=== PATIENT | male | born 2000 | race Caucasian/White ===

== ENCOUNTER 2019-06-04 10:35 | Emergency (ER) | payer MEDICARE, MEDICAID ==
[2019-06-04] MEDS ORDERED: hydrOXYzine HCL TAB* 50 MG PO ONE (10:57)
--- NOTE | 2019-06-04 11:10 | ED ---
Psychiatric Complaint - HPI Summary HPI Summary: Pt is a 18 y/o M presenting to the ED for a psychiatric complaint. Pts mother is present and speaking for the pt. Pts mother states that on 05/31/19, pt was attempting to hurt his dog and was not behaving at baseline. Pts mother states that pt previously took lithium and Seroquel for approximately 6 months which was prescribed by his psychiatrist, but stopped taking these medications for the last 2 days and pts behavior has improved. Pts mother denies pt had a fever. Pt takes Gabapentin for a PMHx of anxiety, and previously took Prozac. Pt also has a PMHx of autism spectrum disorder. Pt has a FMHx of autism spectrum disorder in pts mother, cardiac disease, and anxiety. Pts mother denies FMHx of HTN or DM. - History Of Current Complaint Chief Complaint: EDPsychosocial Time Seen by Provider: 06/04/19 10:39 Hx Obtained From: Family/Forensics Analyst - Mother Hx From Patient Unobtainable Due To: Other - Autism spectrum Onset/Duration: Lasting Days, Still Present Timing: Days Severity Initially: Moderate Severity Currently: Moderate Character: Anxious Aggravating Factor(s): Other - [place] and Seroquel Alleviating Factor(s): Nothing Associated Signs And Symptoms: Positive: Negative Related History: Positive For: Prior Psychiatric Issues - Allergies/Home Medications Allergies/Adverse Reactions: Allergies Allergy/AdvReac Type Severity Reaction Status Date / Time No Known Allergies Allergy Verified 06/04/19 10:46 Home Medications: Home Medications Gabapentin 300 mg PO TID 06/04/19 [History Confirmed 06/04/19] Naproxen Sod/Diphenhydramine [Aleve PM 220-25 mg] 3 tab PO BEDTIME 06/04/19 [ History Confirmed 06/04/19] PMH/Surg Hx/FS Hx/Imm Hx Previously Healthy: Yes Endocrine/Hematology History: Denies: Hx Diabetes Cardiovascular History: Denies: Hx Hypertension Psychiatric History: Reports: Hx Anxiety, Hx Autism - Surgical History Surgical History: None Surgery Procedure, Year, and Place: None Infectious Disease History: No Infectious Disease History: Denies: Traveled Outside the [place] in Last 30 Days - Family History Known Family History: Positive: Cardiac Disease Negative: Hypertension, Diabetes - Social History Lives: With Family Alcohol Use: None Hx Substance Use: No Substance Use Type: Reports: None Smoking Status (MU): Never Smoked Tobacco Review of Systems Negative: Fever Positive: Anxious, Other - Autism spectrum; behavior not at baseline All Other Systems Reviewed And Are Negative: Yes Physical Exam - Summary Physical Exam Summary: Constitutional: Well-developed, Well-nourished, Alert. (-) Distressed Skin: Warm, Dry HENT: Normocephalic; Atraumatic Eyes: Conjunctiva normal Neck: Musculoskeletal ROM normal neck. (-) JVD, (-) Stridor, (-) Nuchal rigidity Cardio: Rhythm regular, rate normal, Heart sounds normal; Intact distal pulses; Radial pulses are 2+ and symmetric. (-) Murmur Pulmonary/Chest wall: Effort normal. (-) Respiratory distress, (-) Wheezes, (-) Rales Abd: Soft, (-) tenderness, (-) Distension, (-) Guarding, (-) Rebound Musculoskeletal: (-) Edema Lymph: (-) Cervical adenopathy Neuro: Alert, Oriented x3. Answers yes/no at neurologic baseline. Psych: Mood and affect Normal Triage Information Reviewed: Yes Vital Signs On Initial Exam: Initial Vitals Temp Pulse Resp BP Pulse Ox 98.5 F 90 16 128/87 97 06/04/19 10:41 06/04/19 10:41 06/04/19 10:41 06/04/19 10:41 06/04/19 10:41 Vital Signs Reviewed: Yes Procedures - Sedation Patient Received Moderate/Deep Sedation with Procedure: No Diagnostics - Vital Signs Vital Signs Temp Pulse Resp BP Pulse Ox 06/04/19 10:41 98.5 F 90 16 128/87 97 - Laboratory Lab Statement: Any lab studies that have been ordered have been reviewed, and results considered in the medical decision making process. Course/Dx - Course Course Of Treatment: 18 y/o male w hx of Autism p/w anxiety concern for need for medication change. - have MHU eval, hydroxyzine for anxiety - Differential Dx/Clinical Impression Provider Diagnosis: Anxiety, Autism spectrum disorder - Physician Notifications Discussed Care Of Patient With: Valeriy Loza - discharge w hydroxyzine Time Discussed With Above Provider: 13:02 Discharge ED - Sign-Out/Discharge Documenting (check all that apply): Patient Departure - Discharge - Discharge Plan Condition: Stable Disposition: HOME Prescriptions: hydrOXYzine HCL TAB* [Atarax TAB 50 MG *] 50 mg PO TID PRN 14 Days #42 tab PRN Reason: Anxiety Patient Education Materials: Autism Spectrum Disorder (DC) Referrals: Antoine Mckeon MD [Primary Care Provider] - - Billing Disposition and Condition Condition: STABLE Disposition: Home - Attestation Statements Document Initiated by Scribe: Yes Documenting Scribe: Petra Fink Provider For Whom Scribe is Documenting (Include Credential): Evelin Silveira MD Scribe Attestation: Petra Mora, scribed for Evelin Silveira MD on 06/04/19 at 1333. Scribe Documentation Reviewed: Yes Provider Attestation: The documentation as recorded by the Petra wong accurately reflects the service I personally performed and the decisions made by Evelin conde MD Status of Scribe Document: Viewed Consult Consult: At 10:56, risk reduction counselor will assess the pt. At 13:02, risk reduction counselor reports that pts case was reviewed by Dr. Loza. Pt will be discharged home with a diagnosis of autism spectrum disorder and will be given Hydroxyzine 50 mg PO for 2 weeks.
[2019-06-04 13:35] VITALS: BP 125/78
== END 2019-06-04 13:16 | disposition home or self-care (01) ==
LOC: ED 10:35
DX: F41.9 Anxiety disorder, unspecified (principal); F84.0 Autistic disorder; Z79.899 Other long term (current) drug therapy
CPT/HCPCS: 99283; A9270-GY

== ENCOUNTER 2019-06-07 18:13 | Emergency (ER) | payer MEDICARE, MEDICAID ==
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
[2019-06-07 19:24] LABS: ABS Eosinophils 0.1 10^3/ul (0-0.6); ABS Lymphocytes 3.3 10^3/ul (1.0-4.8); ABS Monocytes 0.6 10^3/ul (0-0.8); ABS Neutrophils 3.4 10^3/ul (1.5-7.7); Eosinophil % 1.5 %; Hematocrit 44 % (42-52); Lymphocyte % 43.9 %; Mean Corpuscular HGB Conc 34 g/dL (31-36); Mean Corpuscular Hemoglobin 29 pg (27-31); Mean Corpuscular Volume 86 fL (80-94); Mean Platelet Volume 7.6 fL (7.4-10.4); Nucleated Red Blood Cells % 0.1; Platelet Count 305 10^3/uL (150-450); Red Blood Count 5.11 10^6 /uL (4.18-5.48); Red Cell Distribution Width 13 % (10-15); White Blood Count 7.5 10^3/uL (3.5-10.8)
[2019-06-07 19:45] LABS: ALT 11 U/L (7-52); AST 14 U/L (13-39); Albumin 4.4 g/dL (3.2-5.2); Albumin/Globulin Ratio 1.6 (1-3); Alkaline Phosphatase 77 U/L (34-104); Anion Gap 7 mmol/L (2-11); BUN/Creatinine Ratio 19.2 (8-20); Blood Urea Nitrogen 20 mg/dL (6-24); C Reactive Protein 1.31 mg/L (<8.01); CO2 Carbon Dioxide 25 mmol/L (22-32); Calcium 9.6 mg/dL (8.6-10.3); Chloride 107 mmol/L (101-111); EGFR African American 110.2 (>60); Globulin 2.8 g/dL (2-4); Glucose 102 mg/dL (70-100); Potassium 3.8 mmol/L (3.5-5.0); Sodium 139 mmol/L (135-145); Total Protein 7.2 g/dL (6.4-8.9)
[2019-06-07 20:10] LABS: Acetaminophen < 15 mcg/mL; Alcohol < 10 mg/dL (<10); Salicylate < 2.50 mg/dL (<30)
[2019-06-07 20:25] LABS: TSH (Thyroid Stimulating Horm) 3.14 mcIU/mL (0.34-5.60)
[2019-06-07 21:16] LABS: Lithium < 0.10 mmol/L (0.6-1.2)
[2019-06-07] MEDS ORDERED: hydrOXYzine HCL TAB* 50 MG PO ONE (22:48)
--- NOTE | 2019-06-08 05:04 | ED ---
Progress - Progress Note Progress Note: Pt is a sign out from [facility] Sh[facility]azz at 0230 06/08/2019 pending MHU hold and disposition. The pt will be a sign-out to Dr. Fitzgerald at the [address]06/08/2019 shift change pending MHU hold and disposition. - Consult/PCP Time Called: 19:54 Course/Dx - Course Course Of Treatment: Pt is a sign out from [facility] at 0230 06/08/2019 pending MHU hold and disposition. The pt will be a sign-out to Dr. Fitzgerald at the 699 shift change pending MHU hold and disposition. - Diagnoses Provider Diagnoses: Autism, Aggressive behavior Discharge ED - Sign-Out/Discharge Documenting (check all that apply): Sign-Out Patient, Receiving Sign-Out Signing out patient TO: Thomas Fitzgerald Receiving patient FROM: Thomas Shabazz - Discharge Plan Referrals: Antoine Mckeon MD [Primary Care Provider] - - Attestation Statements Document Initiated by Scribe: Yes Documenting Scribe: Patricio Segovia Provider For Whom Stellaibe is Documenting (Include Credential): Felicia Evans MD Scribe Attestation: IPatricio, scribed for Felicia Evans MD on 06/08/19 at 0549. Scribe Documentation Reviewed: Yes Provider Attestation: The documentation as recorded by the stellaibPatricio sauer accurately reflects the service I personally performed and the decisions made by me, Felicia Evans MD Status of Scribe Document: Viewed
--- NOTE | 2019-06-08 07:19 | ED ---
Progress - Progress Note Progress Note: The pt is a sign out to Dr. Fitzgerald from Dr. Evans at the 06/08/2019 0700 shift change pending mental health transfer disposition. - Consult/PCP Time Called: 19:54 Course/Dx - Course Course Of Treatment: This patient was signed out from Dr. Evans at shift change. The patient was awaiting for an assessment from Dr. Fitzgerald. He came and assessed the patient and he recommends for the patient to be discharged home. He requested to give clonazepam and Risperdal before he is discharged. Patient is hemodynamically stable. Patient will follow-up with [facility]. - Diagnoses Provider Diagnoses: Persistent adjustment disorder with mixed anxiety and depressed mood - Provider Notifications Discussed Care Of Patient With: Ariel Fitzgerald Time Discussed With Above Provider: 13:43 Instructed by Provider To: Other - discharge home with Risperadal 5 mgs and Clonazepam 5 mgs. Discharge ED - Sign-Out/Discharge Documenting (check all that apply): Patient Departure - discharge, Receiving Sign-Out Receiving patient FROM: Felicia Evans - Discharge Plan Condition: Stable Disposition: HOME Prescriptions: clonazePAM TAB(*) [KlonoPIN TAB(*)] 0.5 mg PO BEDTIME 15 Days #30 tab MDD 1 mg Risperidone [Risperdal] 0.5 mg PO BID 30 Days #60 tab MDD 1 mg Patient Education Materials: Mood Disorders (ED) Referrals: Antoine Mckeon MD [Primary Care Provider] - - Billing Disposition and Condition Condition: STABLE Disposition: Home - Attestation Statements Document Initiated by Scribe: Yes Documenting Scribe: Lane Golud Provider For Whom Jason is Documenting (Include Credential): Thomas Fitzgerald MD Scribe Attestation: Lane Mora, scribed for Thomas Fitzgerald MD on 06/08/19 at 1826. Scribe Documentation Reviewed: Yes Provider Attestation: The documentation as recorded by the Lane wong accurately reflects the service I personally performed and the decisions made by me, Thomas Fitzgerald MD Status of Scribe Document: Viewed Procedures - Sedation Patient Received Moderate/Deep Sedation with Procedure: No
[2019-06-08] MEDS ORDERED: clonazePAM TAB(*) 0.5 MG PO ONE (13:43)
[2019-06-08] MEDS ORDERED: risperiDONE TAB* 1 MG PO ONE (13:43)
--- NOTE | 2019-06-08 14:22 | PN ---
ED Psychiatric Progress Note Date of Service: 06/08/19 Subjective: This is a 19 year-old M who is pending admission to [facility] / transfer to another psychiatric facility / discharge to home / or being observed secondary to agitation, impulsivity and aggressive behavior at home. Patient is on the autism spectrum. Parents believe his symptoms are caused by anxiety. Objective: Alert, oriented, poorly related, restless, talking to self, has been threatening and aggressive in ED setting. Assessment: Autistic patient with mood and behavioral dysregulation who is at his 2nd ED visit in 5 days. He will not benefit from inpatient psychiatric admission, and he will react to changes in his routines and to being in unfamiliar surrounding and on a locked unit with agitation and aggression that will require restraints and medications and will be traumatizing for the patient. Plan: Parents gave informed consent for trials of Klonopin 0.5 mg BID and Risperidone 0.5 mg BID after hearing of the indications, risks benefiits and alternatives. Parents instructed to call 911 if any safety concern arises and to follow-up with [facility]. Vital Signs Temp Pulse Resp BP Pulse Ox 97.0 F 81 18 117/72 97 06/07/19 18:14 06/07/19 23:24 06/07/19 18:14 06/07/19 23:55 06/07/19 23:24 Lab Results - Entire Visit 06/07/19 06/07/19 06/07/19 19:15 19:15 19:10 WBC 7.5 RBC 5.11 Hgb 15.0 Hct 44 MCV 86 MCH 29 MCHC 34 RDW 13 Plt Count 305 MPV 7.6 Neut % (Auto) 46.3 Lymph % (Auto) 43.9 [place] % (Auto) 7.7 Eos % (Auto) 1.5 Baso % (Auto) 0.6 Absolute Neuts (auto) 3.4 Absolute Lymphs (auto) 3.3 Absolute Monos (auto) 0.6 Absolute Eos (auto) 0.1 Absolute Basos (auto) 0.0 Absolute Nucleated RBC 0.0 Nucleated RBC % 0.1 Sodium 139 Potassium 3.8 Chloride 107 Carbon Dioxide 25 Anion Gap 7 BUN 20 Creatinine 1.04 Est GFR ( Amer) 110.2 Est GFR (Non-Af Amer) 91.0 BUN/Creatinine Ratio 19.2 Glucose 102 H Calcium 9.6 Total Bilirubin 0.30 AST 14 ALT 11 Alkaline Phosphatase 77 C-Reactive Protein 1.31 Total Protein 7.2 Albumin 4.4 Globulin 2.8 Albumin/Globulin Ratio 1.6 TSH 3.14 Salicylates < 2.50 Acetaminophen < 15 [place] < 0.10 L Serum Alcohol < 10
[2019-06-08 15:42] VITALS: BP 90/63
== END 2019-06-08 15:37 | disposition home or self-care (01) ==
LOC: ED 18:13
DX: F43.23 Adjustment disorder with mixed anxiety and depressed mood (principal); F84.0 Autistic disorder; F41.9 Anxiety disorder, unspecified
CPT/HCPCS: 36415; 80053; 80178; 80320; 80329; 84443; 85025; 86140; 99285; A9270-GY; G0480